=== PATIENT | female | born 1950 | race Caucasian/White ===

== ENCOUNTER 2019-01-19 09:06 | Inpatient (IN) | payer OTHER ==
[2019-01-19 10:41] VITALS: BMI 32.2
--- NOTE | 2019-01-19 11:57 | HP ---
CIWA Score Nausea/Vomitin Muscle Tremors: 2 Anxiety: 4-Mod. Anxious/Guarded Agitation: 2 Paroxysmal Sweats: No Perspiration Orientation: 0-Oriented Tacttile Disturbances: 2-Mild Itch/Numbness/Burn Auditory Disturbances: 0-None Visual Disturbances: 0-None Headache: 0-None Present CIWA-Ar Total Score: 13 - Admission Criteria OASAS Guidelines: Admission for Medically Managed Detox: Requires at least one of the followin. CIWA greater than 12 2. Seizures within the past 24 hours 3. Delirium tremens within the past 24 hours 4. Hallucinations within the past 24 hours 5. Acute intervention needed for co occurring medical disorder 6. Acute intervention needed for co occurring psychiatric disorder 7. Severe withdrawal that cannot be handled at a lower level of care (continued vomiting, continued diarrhea, abnormal vital signs) requiring intravenous medication and/or fluids 8. Admission ROS [facility] Chief Complaint: Etoh withdrawal symptoms. Allergies/Adverse Reactions: Allergies Allergy/AdvReac Type Severity Reaction Status Date / Time Penicillins Allergy Severe Verified 01/19/19 10:21 shrimp Allergy Severe Difficulty Verified 01/19/19 10:22 Breathing History of Present Illness: Patient presents as first time admission to [facility] for ETOH withdrawal symptoms. Patient states she started drinking since age 19 and has had multiple periods of sobriety. Currently a member of AA. Last sober period 17 months, relapsed 2 days ago and has been binge drinking since. Patient reports drinking 3-4 pints and last drink was 8am. Patient was in [place] [facility] last night given librium, once stabalized patient then sent here to [facility]. PMH includes anxiety/ depression, right breast cancer in remission 2008 and HTN. Patient denies SI/HI and suicide attmepts. States she has not taken psych medication x 2 days due to relapse. Exam Limitations: No Limitations - Ebola screening Have you traveled outside of the country in the last 21 days: No Have you had contact with anyone from an Ebola affected area: No Have you been sick,other than usual withdrawal symptoms: No Do you have a fever: No - Review of Systems Constitutional: Changes in sleep EENT: reports: No Symptoms Reported Respiratory: reports: No Symptoms reported Cardiac: reports: No Symptoms Reported GI: reports: Nausea, Poor Fluid Intake, Abdominal cramping : reports: No Symptoms Reported Musculoskeletal: reports: Back Pain, Joint Pain, Muscle Pain Neuro: reports: Numbness, Tingling, Tremors Endocrine: reports: No Symptoms Reported Hematology: reports: No Symptoms Reported Psychiatric: reports: Orientated x3, Anxious, Depressed Patient History - Patient Medical History Hx Anemia: No Hx Asthma: No Hx Chronic Obstructive Pulmonary Disease (COPD): No Hx Cancer: Yes (right breast cancer in 2008) Hx Cardiac Disorders: No Hx Congestive Heart Failure: No Hx Hypertension: Yes Hx Hypercholesterolemia: No Hx Pacemaker: No HX Cerebrovascular Accident: No Hx Seizures: No Hx Dementia: No Hx Diabetes: No Hx Gastrointestinal Disorders: No Hx Liver Disease: No Hx Genitourinary Disorders: No Hx Sexually Transmitted Disorders: No Hx Renal Disease (ESRD): No Hx Thyroid Disease: No Hx Human Immunodeficiency Virus (HIV): No Hx Hepatitis C: No Hx Depression: Yes Hx Suicide Attempt: No Hx Bipolar Disorder: No Hx Schizophrenia: No Other Medical History: Hx of right breast cancer in 2008 - Patient Surgical History Past Surgical History: Yes Hx Neurologic Surgery: No Hx Cataract Extraction: No Hx Cardiac Surgery: No Hx Lung Surgery: No Hx Breast Surgery: Yes (right lumpectomy in 2008) Hx Breast Biopsy: No Hx Abdominal Surgery: No Hx Appendectomy: No Hx Cholecystectomy: No Hx Genitourinary Surgery: No Hx Section: No Hx Orthopedic Surgery: No Hx Hysterectomy: No Other Surgical History: partial right lumpectomy Anesthesia Reaction: No - PPD History Previous Implant?: Yes Documented Results: Negative w/o proof PPD to be Administered?: Yes - Reproductive History Patient is a Female of Child Bearing Age (11 -55 yrs old): No Patient : No - Smoking Cessation Smoking history: Never smoked Have you smoked in the past 12 months: No Hx Chewing Tobacco Use: No Initiated information on smoking cessation: No - Substance & Tx. History Hx Alcohol Use: Yes Hx Substance Use: No Substance Use Type: Alcohol Hx Substance Use Treatment: Yes - Substances abused Alcohol Substance route: Oral Frequency: Daily Amount used: 1.5 pints of vodka Age of first use: 19 Date of last use: 01/19/19 Family Disease History - Family Disease History Family Disease History: Heart Disease: Father, [place]: Grandparent (maternal grandmother) Admission Physical Exam BHS - Vital Signs Vital Signs: Vital Signs - 24 hr 07/19/19 07/19/19 10:33 11:24 Temperature 98.8 F 98.8 F Pulse Rate 106 H Respiratory 20 Rate Blood Pressure 122/72 - Physical General Appearance: Yes: Nourished, Tremorous, Anxious HEENTM: Yes: EOMI, Hearing grossly Normal, Normal ENT Inspection, Normocephalic , Normal Voice, DONNIE, Pharynx Normal Respiratory: Yes: Chest Non-Tender, Lungs Clear, Normal Breath Sounds, No Respiratory Distress, No Accessory Muscle Use Neck: Yes: Within Normal Limits, No masses,lesions,Nodules, Supple, Trachea in good position Breast: Yes: Breast Exam Deferred Cardiology: Yes: Regular Rhythm, Regular Rate, S1, S2 Abdominal: Yes: Normal Bowel Sounds, Non Tender, Soft Genitourinary: Yes: Within Normal Limits Back: Yes: Normal Inspection, Muscle Spasm Musculoskeletal: Yes: full range of Motion, Gait Steady, Back pain, Muscle Pain Extremities: Yes: Normal Inspection, Normal Range of Motion, Non-Tender, Tremors Neurological: Yes: change number operator II-XII NML intact, Fully Oriented, Alert, Motor Strength 5/5, Normal Response, Other (anxious) Integumentary: Yes: Normal Color, Dry, Warm Lymphatic: Yes: Within Normal Limits - Diagnostic (1) Alcohol dependence with uncomplicated withdrawal Current Visit: Yes Status: Acute (2) History of breast cancer Current Visit: Yes Status: Chronic (3) HTN (hypertension) Current Visit: Yes Status: Chronic Qualifiers: Hypertension type: essential hypertension Qualified Code(s): I10 - Essential (primary) hypertension (4) Anxiety Current Visit: Yes Status: Chronic (5) Depression Current Visit: Yes Status: Chronic Qualifiers: Depression Type: unspecified Qualified Code(s): F32.9 - Major depressive disorder, single episode, unspecified Cleared for Admission BHS - Detox or Rehab [facility] Level of Care: Medically Managed Detox Regimen/Protocol: Librium Breathalyzer - Breathalyzer Breathalyzer: 0 Urine Drug Screen - Test Device Lot number: [id number] Expiration date: 10/31/20 - Control Is test valid?: Yes - Results Drug screen NEGATIVE: No Urine drug screen results: BZO-Benzodiazepines Inpatient Rehab Admission - Rehab Decision to Admit Inpatient rehab admission?: No
[2019-01-19] MEDS ORDERED: MAG HYDROX/AL HYDROX/SIMETH 30 ML UNIT-DOSE CUP PO PRN (12:02)
[2019-01-19] MEDS ORDERED: MELATONIN 5 MG TABLETS PO PRN (12:02)
[2019-01-19] MEDS ORDERED: BISMUTH SUBSALICYLATE 262 MG/15 ML BTL PO PRN (12:02)
[2019-01-19] MEDS ORDERED: IBUPROFEN 400 MG TABLET (FP) PO PRN (12:02)
[2019-01-19] MEDS ORDERED: ONDANSETRON *ODT* 4 MG TABLET SL PRN (12:02)
[2019-01-19] MEDS ORDERED: MAGNESIUM CITRATE 300 ML BOTTLE PO PRN (12:02)
[2019-01-19] MEDS ORDERED: ACETAMINOPHEN 325 MG TABLET (FP) PO PRN ×2 (12:02)
[2019-01-19] MEDS ORDERED: MENTHOL/PHENOL 1 EACH UD MM PRN (12:02)
[2019-01-19] MEDS ORDERED: MAGNESIUM HYDROX 2400MG/30ML ORAL SUSPENSION 30 ML CUP PO PRN (12:02)
[2019-01-19] MEDS ORDERED: guaiFENesin 200 MG/10 ML 10 ML UNIT-DOSE CUPS PO PRN (12:02)
[2019-01-19] MEDS ORDERED: hydrOXYzine HCL 25 MG TABLET (FP) PO PRN (12:02)
[2019-01-19] MEDS ORDERED: chlordiazePOXIDE HCL 10 MG CAPSULE PO PRN (12:06)
[2019-01-19] MEDS ORDERED: chlordiazePOXIDE HCL 25 MG CAPSULE PO ONE (12:30)
[2019-01-19] MEDS: chlordiazePOXIDE HCL 25 MG CAPSULE PO SCH ×2 (14:04→21:15)
--- NOTE | 2019-01-19 14:12 | CONSULT ---
[facility] Psychiatric Consult - Data Date of interview: 01/19/19 Admission source: [facility] Identifying data: Patient is a 68 year old single female, mother of one, unemployed, homeless, and is supported by [facility]. This is patient's first admission to detox at [facility]. Patient admitted to for alcohol dependence. Substance Abuse History: Smoking Cessation. Smoking history: Never smoked. Have you smoked in the past 12 months: No. Hx Chewing Tobacco Use: No. Initiated information on smoking cessation: No. - Substance & Tx. History. Hx Alcohol Use: Yes. Hx Substance Use: No. Substance Use Type: Alcohol. Hx Substance Use Treatment: Yes. - Substances abused. Alcohol. Substance route: Oral. Frequency: Daily. Amount used: 1.5 pints of vodka. Age of first use: 19. Date of last use: 01/19/19 Medical History: Hx of right breast cancer in 2008, right lumpectomy in 2008 Psychiatric History: Patient denies h/o psychiatric hospitalization and suicide attempt. States she has only seen a psychiatrist/ psychiatric nurse pracitioner while living in a sober house or when admitted to a detox/rehab settings. She reports seeing a psychiatrist while at the [facility] (November 2018) located in [place], [place] and was prescribed Prozac 40mg + Seroquel 50mg + Mirtzapine 15mg. She was then admitted to the sober house at [facility] in [place] (December 08 2018) and was required to see a primary care provider who continued to order her psychotropic medications. Patient reports medication compliance. Diagnosis of anxiety disorder. At present patient reports stable mood. Physical/Sexual Abuse/Trauma History: denies. Mental Status Exam - Mental Status Exam Alert and Oriented to: Time, Place, Person Cognitive Function: Good Patient Appearance: Well Groomed Mood: Hopeful, Euthymic Affect: Mood Congruent Patient Behavior: Appropriate, Cooperative Speech Pattern: Appropriate Voice Loudness: Normal Thought Process: Intact, Goal Oriented Thought Disorder: Not Present Hallucinations: Denies Suicidal Ideation: Denies Homicidal Ideation: Denies Insight/Judgement: Poor Sleep: Poorly Appetite: Fair Muscle strength/Tone: Normal Gait/Station: Normal Psychiatric Findings - Problem List ([place] 1, 2,3) (1) Anxiety disorder Current Visit: Yes Status: Chronic (2) Alcohol dependence with uncomplicated withdrawal Current Visit: Yes Status: Acute - Initial Treatment Plan Initial Treatment Plan: Psychoeducation provided. Detoxification in progress. Will order Prozac 40mg + Seroquel 50mg HS. Will hold mirtazapine 15mg due to risk of oversedation and falls in combination with alcohol withdrawal protocol. Benefits and side effects discussed. Verbal consent given.
[2019-01-19 14:32] LABS: HEMATOCRIT 43.3 % (32.4-45.2); HEMOGLOBIN 14.7 GM/dL (10.7-15.3); MCH 31.9 pg (25.7-33.7); MEAN CELL VOLUME 93.8 fl (80-96); MEAN PLT VOLUME 7.9 fl (7.5-11.1); PLATELET COUNT 382 K/MM3 (134-434); RBC 4.62 M/mm3 (3.60-5.2); RDW 13.7 % (11.6-15.6); WHITE BLOOD COUNT 8.4 K/mm3 (4.0-10.0)
[2019-01-19 14:33] LABS: URINE APPEARANCE CLEAR; URINE BILIRUBIN NEGATIVE (NEGATIVE); URINE COLOR YELLOW; URINE GLUCOSE (UA) NEGATIVE (NEGATIVE); URINE KETONE NEGATIVE (NEGATIVE); URINE LEUK ESTERASE NEGATIVE (NEGATIVE); URINE NITRITE NEGATIVE (NEGATIVE); URINE PROTEIN NEGATIVE (NEGATIVE); URINE UROBILINOGEN 0.2 mg/dL (0.2-1.0)
[2019-01-19 14:48] LABS: ALBUMIN 4.1 g/dl (3.4-5.0); BILIRUBIN,TOTAL 0.4 mg/dL (0.2-1); BLOOD UREA NITROGEN 16.4 mg/dL (7-18); CALCIUM 10.5 mg/dL (8.5-10.1); CREATININE 1.3 mg/dL (0.55-1.3); POTASSIUM 3.4 mmol/L (3.5-5.1); TOT PROT 7.6 g/dl (6.4-8.2)
[2019-01-19] MEDS: QUEtiapine FUMARATE 50 MG TABLET PO SCH (21:15)
[2019-01-19] MEDS: THIAMINE HCL 100 MG TABLET (FP) PO SCH (21:15)
[2019-01-20] MEDS: chlordiazePOXIDE HCL 25 MG CAPSULE PO SCH ×3 (06:16→21:04)
[2019-01-20] MEDS: HYDROCHLOROTHIAZIDE 25 MG TABLET (FP) PO SCH (10:40)
[2019-01-20] MEDS: PRENATAL VITAMINS W/ FOLIC ACID TABLET (FP) PO SCH (10:40)
[2019-01-20] MEDS: LETROZOLE 2.5 MG TABLET (FP) PO SCH (10:40)
[2019-01-20] MEDS: FLUoxetine HCL 20 MG CAPSULE (FP) PO SCH (10:40)
--- NOTE | 2019-01-20 14:25 | PN ---
S CIWA - CIWA Score Nausea/Vomitin-Mild Nausea/No Vomiting Muscle Tremors: 3 Anxiety: 4-Mod. Anxious/Guarded Agitation: 1-Slight > Activity Paroxysmal Sweats: No Perspiration Orientation: 0-Oriented Tacttile Disturbances: 0-None Auditory Disturbances: 0-None Visual Disturbances: 2-Mild Sensitivity Headache: 0-None Present CIWA-Ar Total Score: 11 BHS Progress Note (SOAP) Subjective: Anxious, Nausea, Tremors. Patient reports that current Withdrawal / Detox symptoms have subsided somewhat today in comparison to the level that they were at yesterday. Objective: PATIENT A & O X 3, OBSERVED AMBULATING ON UNIT UNASSISTED. IN NO ACUTE DISTRESS. 01/20/19 14:26 Vital Signs Temperature 98.5 F 01/20/19 14:21 Pulse Rate 83 01/20/19 14:21 Respiratory Rate 18 01/20/19 14:21 Blood Pressure 121/76 01/20/19 14:21 O2 Sat by Pulse Oximetry (%) Laboratory Tests 01/19/19 01/19/19 01/19/19 11:37 12:10 12:10 WBC 8.4 RBC 4.62 Hgb 14.7 Hct 43.3 MCV 93.8 MCH 31.9 MCHC 34.0 RDW 13.7 Plt Count 382 MPV 7.9 Sodium 144 Potassium 3.4 L Chloride 106 Carbon Dioxide 29 Anion Gap 9 BUN 16.4 Creatinine 1.3 Est GFR (CKD-EPI)AfAm 49.51 Est GFR (CKD-EPI)NonAf 42.71 Random Glucose 92 Calcium 10.5 H Total Bilirubin 0.4 AST 24 ALT 24 Alkaline Phosphatase 92 Total Protein 7.6 Albumin 4.1 Urine Color Urine Appearance Urine pH Ur Specific [place] Urine Protein Urine Glucose (UA) Urine Ketones Urine Blood Urine Nitrite Urine Bilirubin Urine Urobilinogen Ur Leukocyte Esterase POC Urine HCG, Qual Negative RPR Titer 01/19/19 01/19/19 12:10 12:10 WBC RBC Hgb Hct MCV MCH MCHC RDW Plt Count MPV Sodium Potassium Chloride Carbon Dioxide Anion Gap BUN Creatinine Est GFR (CKD-EPI)AfAm Est GFR (CKD-EPI)NonAf Random Glucose Calcium Total Bilirubin AST ALT Alkaline Phosphatase Total Protein Albumin Urine Color Yellow Urine Appearance Clear Urine pH 5.0 Ur Specific [place] 1.013 Urine Protein Negative Urine Glucose (UA) Negative Urine Ketones Negative Urine Blood Negative Urine Nitrite Negative Urine Bilirubin Negative Urine Urobilinogen 0.2 Ur Leukocyte Esterase Negative POC Urine HCG, Qual RPR Titer Nonreactive LABS NOTED. RESULTS OF QFT /TB TEST PENDING. 01/20/19 14:27 Assessment: 01/20/19 14:26 WITHDRAWAL SYMPTOMS. HYPOKALEMIA. 01/20/19 14:29 Plan: CONTINUE DETOX. INCREASE DAILY PO WATER INTAKE. K-DUR, 20 MEQ PO BID ORDERED FOR LOW ADMISSION K LEVEL. RE-CHECK K LEVEL ON .
[2019-01-20] MEDS: POTASSIUM CHLORIDE TABS 20 MEQ TABLET.ER (FP) PO SCH (17:56)
[2019-01-20] MEDS: QUEtiapine FUMARATE 50 MG TABLET PO SCH (21:04)
[2019-01-20] MEDS: THIAMINE HCL 100 MG TABLET (FP) PO SCH (21:04)
--- NOTE | 2019-01-21 00:16 | EKG ---
Test Reason : Blood Pressure : / mmHG Vent. Rate : 086 BPM Atrial Rate : 086 BPM P-R Int : 144 ms QRS Dur : 086 ms QT Int : 386 ms P-R-T Axes : 053 016 050 degrees QTc Int : 461 ms NORMAL SINUS RHYTHM NORMAL ECG NO PREVIOUS ECGS AVAILABLE Confirmed by ERIC LEZAMA MD ([id number]) on 01/21/2019 12:15:59 AM Referred By: Confirmed By:ERIC LEZAMA MD
[2019-01-21] MEDS: chlordiazePOXIDE 5 MG CAPSULE PO SCH ×3 (05:50→21:33)
[2019-01-21] MEDS: POTASSIUM CHLORIDE TABS 20 MEQ TABLET.ER (FP) PO SCH ×2 (10:22→17:19)
[2019-01-21] MEDS: PRENATAL VITAMINS W/ FOLIC ACID TABLET (FP) PO SCH (10:22)
[2019-01-21] MEDS: HYDROCHLOROTHIAZIDE 25 MG TABLET (FP) PO SCH (10:22)
[2019-01-21] MEDS: FLUoxetine HCL 20 MG CAPSULE (FP) PO SCH (10:22)
[2019-01-21] MEDS: LETROZOLE 2.5 MG TABLET (FP) PO SCH (10:23)
--- NOTE | 2019-01-21 12:58 | PN ---
S CIWA - CIWA Score Nausea/Vomitin-No Nausea/No Vomiting Muscle Tremors: 2 Anxiety: 2 Agitation: 2 Paroxysmal Sweats: 1-Minimal Palms Moist Orientation: 0-Oriented Tacttile Disturbances: 0-None Auditory Disturbances: 0-None Visual Disturbances: 0-None Headache: 0-None Present CIWA-Ar Total Score: 7 BHS Progress Note (SOAP) Subjective: feeling better today less tremor discuss aftercare with staff that [facility] is preferred patient is optismistic about the alcohol recovery that "I did before" modify alcohol detox regimen that estimate discharge date was 01/23/19 since ciwa = 7 and patient is determined to maintain sober and vobalize "ready" for the next level of care Objective: 01/21/19 13:02 Vital Signs Temperature 99.9 F H 01/21/19 09:11 Pulse Rate 80 01/21/19 09:11 Respiratory Rate 18 01/21/19 09:11 Blood Pressure 129/64 01/21/19 09:11 O2 Sat by Pulse Oximetry (%) Laboratory Last Values WBC 8.4 K/mm3 (4.0-10.0) 01/19/19 12:10 RBC 4.62 M/mm3 (3.60-5.2) 01/19/19 12:10 Hgb 14.7 GM/dL (10.7-15.3) 01/19/19 12:10 Hct 43.3 % (32.4-45.2) 01/19/19 12:10 MCV 93.8 fl (80-96) 01/19/19 12:10 MCH 31.9 pg (25.7-33.7) 01/19/19 12:10 MCHC 34.0 g/dl (32.0-36.0) 01/19/19 12:10 RDW 13.7 % (11.6-15.6) 01/19/19 12:10 Plt Count 382 K/MM3 (134-434) 01/19/19 12:10 MPV 7.9 fl (7.5-11.1) 01/19/19 12:10 Sodium 144 mmol/L (136-145) 01/19/19 12:10 Potassium 3.4 mmol/L (3.5-5.1) L 01/19/19 12:10 Chloride 106 mmol/L (98-107) 01/19/19 12:10 Carbon Dioxide 29 mmol/L (21-32) 01/19/19 12:10 Anion Gap 9 MMOL/L (8-16) 01/19/19 12:10 BUN 16.4 mg/dL (7-18) 01/19/19 12:10 Creatinine 1.3 mg/dL (0.55-1.3) 01/19/19 12:10 Est GFR (CKD-EPI)AfAm 49.51 01/19/19 12:10 Est GFR (CKD-EPI)NonAf 42.71 01/19/19 12:10 Random Glucose 92 mg/dL (74-106) 01/19/19 12:10 Calcium 10.5 mg/dL (8.5-10.1) H 01/19/19 12:10 Total Bilirubin 0.4 mg/dL (0.2-1) 01/19/19 12:10 AST 24 U/L (15-37) 01/19/19 12:10 ALT 24 U/L (13-61) 01/19/19 12:10 Alkaline Phosphatase 92 U/L (45-117) 01/19/19 12:10 Total Protein 7.6 g/dl (6.4-8.2) 01/19/19 12:10 Albumin 4.1 g/dl (3.4-5.0) 01/19/19 12:10 Urine Color Yellow 01/19/19 12:10 Urine Appearance Clear 01/19/19 12:10 Urine pH 5.0 (5.0-8.0) 01/19/19 12:10 Ur Specific [place] 1.013 (1.010-1.035) 01/19/19 12:10 Urine Protein Negative (NEGATIVE) 01/19/19 12:10 Urine Glucose (UA) Negative (NEGATIVE) 01/19/19 12:10 Urine Ketones Negative (NEGATIVE) 01/19/19 12:10 Urine Blood Negative (NEGATIVE) 01/19/19 12:10 Urine Nitrite Negative (NEGATIVE) 01/19/19 12:10 Urine Bilirubin Negative (NEGATIVE) 01/19/19 12:10 Urine Urobilinogen 0.2 mg/dL (0.2-1.0) 01/19/19 12:10 Ur Leukocyte Esterase Negative (NEGATIVE) 01/19/19 12:10 POC Urine HCG, Qual Negative 01/19/19 11:37 RPR Titer Nonreactive (NONREACTIVE) 01/19/19 12:10 lab noted Assessment: 01/21/19 13:02 alcohjol withdrawal sx Plan: continue alcohol detox
[2019-01-21] MEDS: THIAMINE HCL 100 MG TABLET (FP) PO SCH (21:32)
[2019-01-21] MEDS: QUEtiapine FUMARATE 50 MG TABLET PO SCH (21:33)
[2019-01-22] MEDS ORDERED: chlordiazePOXIDE HCL 10 MG CAPSULE PO PRN
[2019-01-22] MEDS ORDERED: chlordiazePOXIDE HCL 10 MG CAPSULE PO SCH (05:00)
[2019-01-22] MEDS ORDERED: chlordiazePOXIDE HCL 10 MG CAPSULE PO ONE (05:00)
[2019-01-22] MEDS: LETROZOLE 2.5 MG TABLET (FP) PO SCH (09:05)
[2019-01-22] MEDS: FLUoxetine HCL 20 MG CAPSULE (FP) PO SCH (09:07)
[2019-01-22] MEDS: POTASSIUM CHLORIDE TABS 20 MEQ TABLET.ER (FP) PO SCH (09:07)
[2019-01-22] MEDS: HYDROCHLOROTHIAZIDE 25 MG TABLET (FP) PO SCH (09:07)
[2019-01-22] MEDS: PRENATAL VITAMINS W/ FOLIC ACID TABLET (FP) PO SCH (09:07)
[2019-01-22 10:14] VITALS: BP 116/67; PULSE 86; TEMP 98.7
--- NOTE | 2019-01-22 13:24 | DS ---
[facility] Detox Discharge Summary Admission Date: 01/19/19 Discharge Date: 01/22/19 - History Present History: Alcohol Dependence Additional Comments: 68 yeas old female admitted on 01/19/19 for acute alcohol withdrawal sx management no complication throughout the detox stay Laboratory Last Values WBC 8.4 K/mm3 (4.0-10.0) 01/19/19 12:10 RBC 4.62 M/mm3 (3.60-5.2) 01/19/19 12:10 Hgb 14.7 GM/dL (10.7-15.3) 01/19/19 12:10 Hct 43.3 % (32.4-45.2) 01/19/19 12:10 MCV 93.8 fl (80-96) 01/19/19 12:10 MCH 31.9 pg (25.7-33.7) 01/19/19 12:10 MCHC 34.0 g/dl (32.0-36.0) 01/19/19 12:10 RDW 13.7 % (11.6-15.6) 01/19/19 12:10 Plt Count 382 K/MM3 (134-434) 01/19/19 12:10 MPV 7.9 fl (7.5-11.1) 01/19/19 12:10 Sodium 144 mmol/L (136-145) 01/19/19 12:10 Potassium 3.4 mmol/L (3.5-5.1) L 01/19/19 12:10 Chloride 106 mmol/L (98-107) 01/19/19 12:10 Carbon Dioxide 29 mmol/L (21-32) 01/19/19 12:10 Anion Gap 9 MMOL/L (8-16) 01/19/19 12:10 BUN 16.4 mg/dL (7-18) 01/19/19 12:10 Creatinine 1.3 mg/dL (0.55-1.3) 01/19/19 12:10 Est GFR (CKD-EPI)AfAm 49.51 01/19/19 12:10 Est GFR (CKD-EPI)NonAf 42.71 01/19/19 12:10 Random Glucose 92 mg/dL (74-106) 01/19/19 12:10 Calcium 10.5 mg/dL (8.5-10.1) H 01/19/19 12:10 Total Bilirubin 0.4 mg/dL (0.2-1) 01/19/19 12:10 AST 24 U/L (15-37) 01/19/19 12:10 ALT 24 U/L (13-61) 01/19/19 12:10 Alkaline Phosphatase 92 U/L (45-117) 01/19/19 12:10 Total Protein 7.6 g/dl (6.4-8.2) 01/19/19 12:10 Albumin 4.1 g/dl (3.4-5.0) 01/19/19 12:10 Urine Color Yellow 01/19/19 12:10 Urine Appearance Clear 01/19/19 12:10 Urine pH 5.0 (5.0-8.0) 01/19/19 12:10 Ur Specific [place] 1.013 (1.010-1.035) 01/19/19 12:10 Urine Protein Negative (NEGATIVE) 01/19/19 12:10 Urine Glucose (UA) Negative (NEGATIVE) 01/19/19 12:10 Urine Ketones Negative (NEGATIVE) 01/19/19 12:10 Urine Blood Negative (NEGATIVE) 01/19/19 12:10 Urine Nitrite Negative (NEGATIVE) 01/19/19 12:10 Urine Bilirubin Negative (NEGATIVE) 01/19/19 12:10 Urine Urobilinogen 0.2 mg/dL (0.2-1.0) 01/19/19 12:10 Ur Leukocyte Esterase Negative (NEGATIVE) 01/19/19 12:10 POC Urine HCG, Qual Negative 01/19/19 11:37 RPR Titer Nonreactive (NONREACTIVE) 01/19/19 12:10 TB (QFT) Incubation (.) 01/19/19 12:10 TB Test (QFT) Nil 0.13 IU/mL (.) 01/19/19 12:10 TB Test (QFT) Mitogen 6.81 IU/mL (.) 01/19/19 12:10 TB Test (QFT) Antigen 0.12 IU/mL (.) 01/19/19 12:10 TB Test (QFT) Negative (Negative) 01/19/19 12:10 TB Positive Criteria (.) 01/19/19 12:10 lab noted K+ 3.4 - Physical Exam Results Vital Signs: Vital Signs Temperature 98.7 F 07/22/19 10:13 Pulse Rate 86 01/22/19 10:13 Respiratory Rate 16 01/22/19 10:13 Blood Pressure 116/67 01/22/19 10:13 O2 Sat by Pulse Oximetry (%) Pertinent Admission Physical Exam Findings: alcohol withdrawal sx Laboratory Last Values WBC 8.4 K/mm3 (4.0-10.0) 01/19/19 12:10 RBC 4.62 M/mm3 (3.60-5.2) 01/19/19 12:10 Hgb 14.7 GM/dL (10.7-15.3) 01/19/19 12:10 Hct 43.3 % (32.4-45.2) 01/19/19 12:10 MCV 93.8 fl (80-96) 01/19/19 12:10 MCH 31.9 pg (25.7-33.7) 01/19/19 12:10 MCHC 34.0 g/dl (32.0-36.0) 01/19/19 12:10 RDW 13.7 % (11.6-15.6) 01/19/19 12:10 Plt Count 382 K/MM3 (134-434) 01/19/19 12:10 MPV 7.9 fl (7.5-11.1) 01/19/19 12:10 Sodium 144 mmol/L (136-145) 01/19/19 12:10 Potassium 3.4 mmol/L (3.5-5.1) L 01/19/19 12:10 Chloride 106 mmol/L (98-107) 01/19/19 12:10 Carbon Dioxide 29 mmol/L (21-32) 01/19/19 12:10 Anion Gap 9 MMOL/L (8-16) 01/19/19 12:10 BUN 16.4 mg/dL (7-18) 01/19/19 12:10 Creatinine 1.3 mg/dL (0.55-1.3) 01/19/19 12:10 Est GFR (CKD-EPI)AfAm 49.51 01/19/19 12:10 Est GFR (CKD-EPI)NonAf 42.71 01/19/19 12:10 Random Glucose 92 mg/dL (74-106) 01/19/19 12:10 Calcium 10.5 mg/dL (8.5-10.1) H 01/19/19 12:10 Total Bilirubin 0.4 mg/dL (0.2-1) 01/19/19 12:10 AST 24 U/L (15-37) 01/19/19 12:10 ALT 24 U/L (13-61) 01/19/19 12:10 Alkaline Phosphatase 92 U/L (45-117) 01/19/19 12:10 Total Protein 7.6 g/dl (6.4-8.2) 01/19/19 12:10 Albumin 4.1 g/dl (3.4-5.0) 01/19/19 12:10 Urine Color Yellow 01/19/19 12:10 Urine Appearance Clear 01/19/19 12:10 Urine pH 5.0 (5.0-8.0) 01/19/19 12:10 Ur Specific [place] 1.013 (1.010-1.035) 01/19/19 12:10 Urine Protein Negative (NEGATIVE) 01/19/19 12:10 Urine Glucose (UA) Negative (NEGATIVE) 01/19/19 12:10 Urine Ketones Negative (NEGATIVE) 01/19/19 12:10 Urine Blood Negative (NEGATIVE) 01/19/19 12:10 Urine Nitrite Negative (NEGATIVE) 01/19/19 12:10 Urine Bilirubin Negative (NEGATIVE) 01/19/19 12:10 Urine Urobilinogen 0.2 mg/dL (0.2-1.0) 01/19/19 12:10 Ur Leukocyte Esterase Negative (NEGATIVE) 01/19/19 12:10 POC Urine HCG, Qual Negative 01/19/19 11:37 RPR Titer Nonreactive (NONREACTIVE) 01/19/19 12:10 TB (QFT) Incubation (.) 01/19/19 12:10 TB Test (QFT) Nil 0.13 IU/mL (.) 01/19/19 12:10 TB Test (QFT) Mitogen 6.81 IU/mL (.) 01/19/19 12:10 TB Test (QFT) Antigen 0.12 IU/mL (.) 01/19/19 12:10 TB Test (QFT) Negative (Negative) 01/19/19 12:10 TB Positive Criteria (.) 01/19/19 12:10 lab noted k+ 3.4 patient refuses repeat K+ - Treatment Hospital Course: Detox Protocol Followed, Detoxed Safely, Responded well, Discharged Condition Good, Rehab Referral Accepted Patient [facility] Medication Discharge Medications: Ambulatory Orders Fluoxetine HCl [Prozac] 40 mg PO DAILY 01/19/19 Hydrochlorothiazide 25 mg PO DAILY 01/19/19 Hydroxyzine HCl 10 mg PO PRN 01/19/19 Letrozole 2.5 mg PO DAILY 01/19/19 Mirtazapine [Remeron -] 15 mg PO HS 01/19/19 Quetiapine Fumarate [Quetiapine Fumarate ER] 50 mg PO HS 01/19/19 Quetiapine Fumarate [Seroquel -] 50 mg PO HS 01/19/19 - Diagnosis (1) Alcohol dependence with uncomplicated withdrawal Status: Acute (2) HTN (hypertension) Status: Chronic Qualifiers: Hypertension type: essential hypertension Qualified Code(s): I10 - Essential (primary) hypertension - AMA Did Patient Leave Against Medical Advice: No
[2019-01-23] MEDS ORDERED: chlordiazePOXIDE HCL 10 MG CAPSULE PO ONE (05:00)
== END 2019-01-22 09:29 | disposition home or self-care (01) | DRG 897 ==
LOC: YASAS 09:06 → Y3N 12:17
PROVIDERS: ADMIT Surgery; ATTEND Surgery
PROC: HZ2ZZZZ Detoxification Services for Substance Abuse Treatment (ICD-10-PCS; principal; 2019-01-19)
DX: F10.230 Alcohol dependence with withdrawal, uncomplicated (principal); F41.9 Anxiety disorder, unspecified; F32.9 Major depressive disorder, single episode, unspecified; I10 Essential (primary) hypertension; E87.6 Hypokalemia; Z85.3 Personal history of malignant neoplasm of breast; Z88.0 Allergy status to penicillin; Z91.013 Allergy to seafood
CPT/HCPCS: 36415; 80053; 81003; 81025; 85027; 86480; 86593; 93005; 93010